=== PATIENT | female | born 2000 | race Caucasian/White ===

== ENCOUNTER 2018-07-05 01:50 | Emergency (ER) | payer SELFPAY ==
[~2018-07-05] VITALS: Ht 167.6 cm; Wt 68.2 kg
[2018-07-05 01:54] VITALS: TEMP 98.2
[2018-07-05] MEDS ORDERED: MIRENA52 MG IY (02:17)
[2018-07-05] MEDS ORDERED: NORCO 325 MG-51 TAB PO (03:32)
[2018-07-05 04:07] VITALS: BP 114/73; PULSE 94
== END 2018-07-05 04:07 | disposition home or self-care (01) ==
LOC: COL.ER 01:50
DX: S62.306A Unspecified fracture of fifth metacarpal bone, right hand, initial encounter for closed fracture (principal); W20.8XXA Other cause of strike by thrown, projected or falling object, initial encounter; Y92.59 Other trade areas as the place of occurrence of the external cause
CPT/HCPCS: Q4021